=== PATIENT | male | born 1985 | race African-American/Black ===

== ENCOUNTER 2017-09-15 15:35 | Emergency (ER) | payer OTHER ==
[~2017-09-15] VITALS: Ht 188 cm; Wt 133.8 kg
[2017-09-15 16:41] VITALS: BP 126/70
== END 2017-09-15 17:12 | disposition home or self-care (01) ==
LOC: ER 15:45
DX: S16.1XXA Strain of muscle, fascia and tendon at neck level, initial encounter (principal); V43.52XA Car driver injured in collision with other type car in traffic accident, initial encounter; Y93.89 Activity, other specified; Y99.8 Other external cause status; Y92.410 Unspecified street and highway as the place of occurrence of the external cause